=== PATIENT | male | born 1930 | race Caucasian/White ===

== ENCOUNTER 2021-01-30 08:58 | Outpatient (CLI) | payer MEDICARE, BC | END 2021-01-30 08:59 | disposition home or self-care (01) | LOC: CSHWCC 08:58 | PROVIDERS: ATTEND Nurse Practitioner Family | DX: T81.30XD Disruption of wound, unspecified, subsequent encounter (principal); L89.612 Pressure ulcer of right heel, stage 2; L89.622 Pressure ulcer of left heel, stage 2; L89.514 Pressure ulcer of right ankle, stage 4; L89.894 Pressure ulcer of other site, stage 4; L89.44 Pressure ulcer of contiguous site of back, buttock and hip, stage 4; E11.621 Type 2 diabetes mellitus with foot ulcer; L97.526 Non-pressure chronic ulcer of other part of left foot with bone involvement without evidence of necrosis; R60.0 Localized edema; I10 Essential (primary) hypertension; M10.9 Gout, unspecified; M62.50 Muscle wasting and atrophy, not elsewhere classified, unspecified site; M86.672 Other chronic osteomyelitis, left ankle and foot; R26.81 Unsteadiness on feet; R26.89 Other abnormalities of gait and mobility; W51.XXXS Accidental striking against or bumped into by another person, sequela; Z74.01 Bed confinement status | CPT/HCPCS: 11042; 11045; 97139; 97607; G0463; 89060; 99213 ==

== ENCOUNTER 2021-02-20 08:26 | Outpatient (CLI) | payer MEDICARE, BC | END 2021-02-20 08:27 | disposition home or self-care (01) | LOC: CSHWCC 08:26 | PROVIDERS: ATTEND Nurse Practitioner Family | DX: L89.894 Pressure ulcer of other site, stage 4 (principal); L89.514 Pressure ulcer of right ankle, stage 4; L89.44 Pressure ulcer of contiguous site of back, buttock and hip, stage 4; L89.622 Pressure ulcer of left heel, stage 2; L89.612 Pressure ulcer of right heel, stage 2; E11.621 Type 2 diabetes mellitus with foot ulcer; L97.509 Non-pressure chronic ulcer of other part of unspecified foot with unspecified severity; M86.672 Other chronic osteomyelitis, left ankle and foot; M62.50 Muscle wasting and atrophy, not elsewhere classified, unspecified site; R26.81 Unsteadiness on feet; R26.89 Other abnormalities of gait and mobility; M10.9 Gout, unspecified; I10 Essential (primary) hypertension; T81.30XD Disruption of wound, unspecified, subsequent encounter; W51.XXXD Accidental striking against or bumped into by another person, subsequent encounter; Z74.01 Bed confinement status | CPT/HCPCS: 97605; 99213; G0463 ==

== ENCOUNTER 2021-03-22 13:17 | Outpatient (CLI) | payer MEDICARE, BC ==
[~2021-03-22 13:17] MED LIST: Piperacillin/Tazobactam 3.375 GM in Sodium Chloride 0.9% 100 ML IVPB SCH
== END 2021-03-22 13:18 | disposition home or self-care (01) ==
LOC: CSHWCC 13:17
PROVIDERS: ATTEND Nurse Practitioner Family
DX: L89.894 Pressure ulcer of other site, stage 4 (principal); L89.514 Pressure ulcer of right ankle, stage 4; L89.44 Pressure ulcer of contiguous site of back, buttock and hip, stage 4; L89.622 Pressure ulcer of left heel, stage 2; L89.612 Pressure ulcer of right heel, stage 2; L89.896 Pressure-induced deep tissue damage of other site; I87.2 Venous insufficiency (chronic) (peripheral); T81.30XD Disruption of wound, unspecified, subsequent encounter; E11.621 Type 2 diabetes mellitus with foot ulcer; L97.509 Non-pressure chronic ulcer of other part of unspecified foot with unspecified severity; M10.9 Gout, unspecified; M62.50 Muscle wasting and atrophy, not elsewhere classified, unspecified site; I10 Essential (primary) hypertension; M86.672 Other chronic osteomyelitis, left ankle and foot; R26.81 Unsteadiness on feet; R26.89 Other abnormalities of gait and mobility; W51.XXXD Accidental striking against or bumped into by another person, subsequent encounter; Z74.01 Bed confinement status

== ENCOUNTER 2021-04-26 15:10 | Outpatient (CLI) | payer MEDICARE, BC | END 2021-04-26 15:11 | disposition home or self-care (01) | LOC: CSHWCC 15:10 | PROVIDERS: ATTEND Nurse Practitioner Family | DX: L89.514 Pressure ulcer of right ankle, stage 4 (principal); L89.894 Pressure ulcer of other site, stage 4; L89.44 Pressure ulcer of contiguous site of back, buttock and hip, stage 4; L89.612 Pressure ulcer of right heel, stage 2; L89.896 Pressure-induced deep tissue damage of other site; L89.95 Pressure ulcer of unspecified site, unstageable; L89.90 Pressure ulcer of unspecified site, unspecified stage; I87.2 Venous insufficiency (chronic) (peripheral); E11.621 Type 2 diabetes mellitus with foot ulcer; I10 Essential (primary) hypertension; M10.9 Gout, unspecified; M62.50 Muscle wasting and atrophy, not elsewhere classified, unspecified site; M86.672 Other chronic osteomyelitis, left ankle and foot; R26.81 Unsteadiness on feet; R26.89 Other abnormalities of gait and mobility; W51.XXXD Accidental striking against or bumped into by another person, subsequent encounter; Z74.01 Bed confinement status | CPT/HCPCS: 11042; 11045; 97139; G0463; 99213 ==

== ENCOUNTER 2021-05-24 13:38 | Outpatient (CLI) | payer MEDICARE, BC | END 2021-05-24 13:39 | disposition home or self-care (01) | LOC: CSHWCC 13:38 | PROVIDERS: ATTEND Nurse Practitioner Family | DX: L89.619 Pressure ulcer of right heel, unspecified stage (principal); L89.519 Pressure ulcer of right ankle, unspecified stage; L89.159 Pressure ulcer of sacral region, unspecified stage; L89.899 Pressure ulcer of other site, unspecified stage | CPT/HCPCS: 11044; 97139; 97605; G0463; 99213 ==